=== PATIENT | female | born 1980 | race Caucasian/White ===

== ENCOUNTER → 2016-10-06 | Outpatient (CLI) | payer BC ==
[~2016-10-06] MED LIST: IRON TABLETS325 MG PO; MOTRIN 600600 MG/TAB PO; NORCO 325 MG-51 TAB PO; PRENATAL1 TA1 PO
== END ==
LOC: COL.RAD 08:00
DX: S43.431A Superior glenoid labrum lesion of right shoulder, initial encounter (principal)
CPT/HCPCS: A9585; Q9967

== ENCOUNTER → 2019-07-02 | Outpatient (CLI) | payer BC | LOC: COL.RAD 13:00 | DX: M25.551 Pain in right hip (principal) | CPT/HCPCS: J3301; Q9967 ==

== ENCOUNTER → 2023-05-26 | Outpatient (CLI) | payer BC | LOC: MC.RAD 11:02 | DX: N63.20 Unspecified lump in the left breast, unspecified quadrant (principal) ==